=== PATIENT | male | born 1960 | race Caucasian/White ===

== ENCOUNTER 2021-04-21 07:15 | Day surgery (SDC) | payer MEDICAID ==
[~2021-04-21 07:15] MED LIST: Bupivacaine 0.5%/EPINEPHrine 1:200,000 50 ML MDV ONE; Midazolam 1 MG/ML 2 ML SDV ONE; Propofol 200 MG/20 ML SDV ONE; fentaNYL 100 MCG/2 ML SDV ONE
[2021-04-21] MEDS: Dextrose 5%-Lactated Ringers 1,000 ML IV SCH (07:35)
[2021-04-21] MEDS: Acetaminophen 500 MG Tab PO ONE (07:37)
[2021-04-21] MEDS: ceFAZolin 2 GM in Premix Bag 1 BAG IV ONE (09:09)
[2021-04-21] MEDS ORDERED: Glycopyrrolate 0.2 MG/ML 5 ML MDV ONE (09:21)
[2021-04-21] MEDS ORDERED: fentaNYL 100 MCG/2 ML SDV ONE (09:27)
[2021-04-21] MEDS ORDERED: Propofol 200 MG/20 ML SDV ONE ×2 (09:27→10:00)
[2021-04-21] MEDS: Bupivacaine 0.5% 50 ML MDV ONE (09:56)
[2021-04-21] MEDS: Lidocaine 1% with EPINEPHrine 1:100,000 50 ML MDV ONE (09:57)
[2021-04-21] MEDS ORDERED: Ketorolac 30 MG/ML SDV ONE (09:59)
[2021-04-21] MEDS: oxyCODONE 5 MG Tab PO ONE (11:24)
[2021-04-22] MEDS: Ibuprofen 600 MG Tab PO ONE (11:24)
== END 2021-04-21 12:41 | disposition home or self-care (01) ==
LOC: JP.SDS 07:15
PROVIDERS: ATTEND Surgery
DX: K40.30 Unilateral inguinal hernia, with obstruction, without gangrene, not specified as recurrent (principal)
CPT/HCPCS: 49507; A9270; C1713; C1781; J0690; J1885; J2020; J2250; J2704; J3010; J3490; J7121

== ENCOUNTER 2022-07-16 21:30 | Emergency (ER) | payer MEDICAID ==
[2022-07-16] MEDS ORDERED: Bacitracin Oint 1 GM U/D Packet TOP ONE (21:59)
[2022-07-16] MEDS ORDERED: Lidocaine 1% with EPINEPHrine 1:100,000 50 ML MDV SUBCUT STA (21:59)
[2022-07-16] MEDS ORDERED: Diphtheria,Pertussis(Acell),Tetanus Vaccine 0.5 ML Syringe IM ONE (22:21)
== END 2022-07-16 22:48 | disposition home or self-care (01) ==
LOC: JP.ED 21:30
DX: S51.012A Laceration without foreign body of left elbow, initial encounter (principal); F17.210 Nicotine dependence, cigarettes, uncomplicated; Z91.09 Other allergy status, other than to drugs and biological substances; Z23 Encounter for immunization; W10.9XXA Fall (on) (from) unspecified stairs and steps, initial encounter
CPT/HCPCS: 12001; 90471; 90715; 99282-25